=== PATIENT | male | born 2000 | race African-American/Black ===

== ENCOUNTER 2021-04-09 20:20 | Emergency (ER) | payer OTHER ==
[~2021-04-09] VITALS: Ht 172.7 cm; Wt 72.6 kg
--- NOTE | ~2021-04-09 | EMS ---
[address] [address] EMS Patient Care Report Name: SIMÓN FONSECA Room #: DEP HOLLY Garvey#: [id number] Admission: 04/09/21 Attend Phys: Discharge: 04/09/21 Date of : 01 Report #: [id number] THIS REPORT FOR: //name// Report Transmitted: 04/12/2021 09:46 EMS Care Summary [place], [place]/[facility] Incident [id number] @ 04/09/2021 19:47 Incident Location [address] [place] [id number] Patient SIMÓN FONSECA Male, 21 Years 2000 Patient Address [address] [place] [id number] Patient History None Reported, Patient Allergies No known allergies, Patient Medications None Reported, Chief Complaint ABDOMINAL PAIN Disposition Transported No Lights/[place] Reason Abdominal Pain/Problems Transported To [facility] Narrative MEDIC 30 WAS DISPATCHED TO THE ADDRESS LSITED PREVIOUSLY IN THIS REPORT ON A PATIENT WITH ABDOMINAL PAIN. UPON ARRIVAL, EMS OBSERVED ONE MALE PATIENT [address] [address] EMS Patient Care Report Name: SIMÓN FONSECA Room #: DEP Mare#: [id number] Admission: 04/09/21 Attend Phys: Discharge: 04/09/21 Date of : 01 Report #: [id number] AMBULATING TOWARDS EMS WITH A STEADY GAIT. PATIENT WAS TRACKING EMS UPON APPROACH. PATIENT INFOREMD EMS THAT HE HAD BEEN EXPERIENCING ABDOMINAL PAIN FOR TWO HOURS PRIOR TO TO EMS ARRIVAL. PATIENT THEN AMBULATED UP INTO THE AMBULANCE AND PLACED HIMSELF ON THE BENCH SEAT WITHOUT INCIDENT. ONCE IN THE AMBULANCE, VITAL SIGN MONITORING CONTINUED. ONCE ENROUTE TO THE RECEIVING FACILITY ([facility]), VITAL SIGN MONITORING CONTINUED AND RADIO REPORT WAS GIVEN. UPON ARRIVAL AT THE RECEIVING FACIITY, PATIENT WAS MOVED FROM THE AMBULANCE TO THE HOSPITAL COT WITHOUT INCIDENT. VERBAL REPORT WAS GIVEN TO THE PATIENT'S NURSE AND PATIENT CARE WAS TRANSFERRED. Initial Vitals @20:05P: 89,R: 16,BP: 134/79,Pain: 6/10,GCS: 15,SpO2: 98,Revised Trauma: 12, Assessments @20:00MENTAL:Place Oriented,Time Oriented,Event Oriented,Person Oriented,SKIN:HEENT:LUNG SOUNDS:Right Upper: Other,Right Upper: Guarding,Right Upper: Tenderness,ABDOMEN:Right Upper: Other,Right Upper: Guarding,Right Upper: Tenderness,PELVIS//GI:EXTREMITIES:PULSE:Radial: 2+ Normal,NEURO: Impression Abdominal Pain Procedures @20:00 ALS Assessment Response: UnchangedSucceeded Timeline 19:45,Call Received 19:45,Dispatch Notified 19:47,Dispatched 19:47,En Route 20:00,On Scene 20:00,At Patient 20:00,ALS Assessment,Response: UnchangedSucceeded, 20:05,BP: 134/79 M,PULSE: 89,RR: 16 R,SPO2: 98 Ox,ETCO2: ,BG: ,PAIN: 6,GCS: 15, 20:07,Depart Scene 20:18,At Destination 20:41,Call Closed Disclaimer v1.1 Copyright 2020 [employer] This EMS Care Summary contains data elements from the applicable legal record (which may be displayed differently). It is designed to provide pertinent information for the following purposes: continuity of care, clinical quality, and state data reporting. The complete legal record is available to ED staff and administrators of the receiving hospital in [employer]'s Patient Tracker. All data [address] [address] EMS Patient Care Report Name: MARIANGR Room #: DEP HOLLY Garvey#: [id number] Admission: 04/09/21 Attend Phys: Discharge: 04/09/21 Date of : 01 Report #: [id number] is provided "as is."
[2021-04-09 20:23] VITALS: BP 159/89
[2021-04-09 20:57] LABS: ABSOLUTE NEUTROPHILS 1.6 thou/uL (1.4-8.2); BASOPHILS 0.7 % (0.0-2.0); EOSINOPHILS 0.8 % (0.0-3.0); HEMATOCRIT 38.7 % (42.0-52.0); LYMPHOCYTES 40.8 % (24.0-44.0); MCH 30.3 pg (26.0-34.0); MCHC 33.6 g/dL (28.0-37.0); MCV 90.1 fL (80.0-100.0); MONOCYTES 9.1 % (1.0-8.0); PLATELET COUNT 193 thou/uL (150-400); POLYS 48.6 % (36.0-66.0); RDW 13.4 % (10.5-14.5); WBC 3.3 thou/uL (4.0-11.0)
[2021-04-09 21:04] LABS: CALCIUM 8.6 mg/dL (8.5-10.1); POTASSIUM 3.7 mmol/L (3.5-5.1)
[2021-04-09 21:12] LABS: ALBUMIN 3.8 g/dL (3.4-5.0); DIRECT BILIRUBIN 0.2 mg/dL (<0.1-0.2); TOTAL BILIRUBIN 1.1 mg/dL (0.2-1.0); TOTAL PROTEIN 6.7 g/dL (6.4-8.2)
[2021-04-09] MEDS ORDERED: PEPCID20 MG PO (22:34)
== END 2021-04-09 22:55 | disposition home or self-care (01) ==
LOC: ER 20:20
PROVIDERS: Student in an Organized Health Care Education/Training Program
DX: R10.11 Right upper quadrant pain (principal); R11.2 Nausea with vomiting, unspecified; F12.90 Cannabis use, unspecified, uncomplicated; Z98.890 Other specified postprocedural states

== ENCOUNTER 2021-04-14 02:38 | Emergency (ER) | payer OTHER ==
[~2021-04-14] VITALS: Ht 175.3 cm; Wt 72.6 kg
[~2021-04-14 02:38] MED LIST: PEPCID20 MG PO
[2021-04-14 03:50] LABS: ABSOLUTE NEUTROPHILS 3.2 thou/uL (1.4-8.2); BASOPHILS 0.6 % (0.0-2.0); EOSINOPHILS 0.2 % (0.0-3.0); HEMATOCRIT 42.1 % (42.0-52.0); HEMOGLOBIN 13.8 gm/dL (14.0-18.0); MCH 29.9 pg (26.0-34.0); MCHC 32.7 g/dL (28.0-37.0); MCV 91.3 fL (80.0-100.0); MONOCYTES 7.1 % (1.0-8.0); PLATELET COUNT 197 thou/uL (150-400); POLYS 72.1 % (36.0-66.0); RBC 4.61 mil/uL (4.50-6.00); RDW 13.4 % (10.5-14.5); WBC 4.4 thou/uL (4.0-11.0)
[2021-04-14 03:58] LABS: CALCIUM 8.9 mg/dL (8.5-10.1); CREATININE 1.2 mg/dL (0.7-1.3); POTASSIUM 3.4 mmol/L (3.5-5.1)
[2021-04-14 04:04] LABS: TOTAL BILIRUBIN 1.2 mg/dL (0.2-1.0); TOTAL PROTEIN 7.1 g/dL (6.4-8.2)
[2021-04-14] MEDS ORDERED: NORCO5 PO (05:37)
[2021-04-14] MEDS ORDERED: ZOFRAN ODT4 MG PO (05:37)
[2021-04-14 05:56] VITALS: BP 129/85
== END 2021-04-14 05:58 | disposition home or self-care (01) ==
LOC: ER 02:38
PROVIDERS: Emergency Medicine
DX: R10.31 Right lower quadrant pain (principal); R11.2 Nausea with vomiting, unspecified